=== PATIENT | female | born 1965 | race African-American/Black ===

== ENCOUNTER 2016-11-29 10:42 | Emergency (ER) | payer OTHER ==
[~2016-11-29] VITALS: Ht 165.1 cm; Wt 73.9 kg
[2016-11-29 10:49] VITALS: BP 119/73
[2016-11-29] MEDS ORDERED: PROMETHAZINE-C118 M1 ORAL (11:20)
[2016-11-29] MEDS ORDERED: IBUPROFEN600 MG ORAL (11:20)
[2016-11-29] MEDS ORDERED: CHLORPHENIRAMINE4 MG ORAL (11:20)
[2016-11-29 11:33] VITALS: BP 130/83
--- NOTE | 2016-11-29 20:05 | Emergency Room Report ---
History of Present Illness General Chief Complaint: Flu Like Symptoms Source: Patient Present Illness HPI 4 days of URI sy. R neck pain with palpation and movement - she thinks there are swollen nodes there. Slight headache. Sl sore throat. Non-productive cough. No flu vaccination. No NVD, rashes, chest pain, dysuria. 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 Menstrual Period: 2 weeks ago Reviewed Nursing Documentation: PMH: Agreed, PSxH: Agreed Nursing Documentation-PM Past Medical History: No Stated History Review of Systems All Other Systems: negative except mentioned in HPI Physical Exam Vital Signs Date Time Temp Pulse Resp B/P Pulse Ox O2 Delivery O2 Flow Rate FiO2 11/29/16 10:49 98.8 70 18 119/73 99 Room Air 11/29/16 10:55 99 Sp02 EP Interpretation: reviewed, normal General Appearance: well appearing, no apparent distress, GCS 15 Head: normocephalic, atraumatic Eyes: bilateral eye PERRL, bilateral eye normal inspection ENT: hearing grossly normal, normal voice, TMs + canals normal, pharyngeal erythema Neck: full range of motion, no meningismus, no bony tend, tender lateral - R sided Respiratory: chest non-tender, lungs clear, normal breath sounds, no respiratory distress, speaking full sentences Cardiovascular #1: regular rate, rhythm Gastrointestinal: normal inspection Musculoskeletal: digits/nails normal, gait/station normal, normal range of motion, no calf tenderness Neurologic: alert - grossly normal, normal gait Psychiatric: mood/affect normal Skin: no rash Lymphatic: other - anterior chain nodes Medical Decision Making Diagnostic Impression: Primary Impression: Upper respiratory infection Qualified Codes: J06.9 - Acute upper respiratory infection, unspecified ER Course Patient with URI sy and some neck pain. Ddx: viral syndrome, bronchitis, influenza. No signs of meningitis. Beyond time period where tamiflu indicated. Also sy not classic for influenza. Focus on symptomatic tx. Patient stable for outpatient observation and treatment. Last Vital Signs Date Time Temp Pulse Resp B/P Pulse Ox O2 Delivery O2 Flow Rate FiO2 11/29/16 11:33 98.8 11/29/16 11:33 74 16 130/83 98 11/29/16 10:55 Room Air 99 Status: improved Disposition: HOME, SELF-CARE Condition: Improved Scripts Ibuprofen* (MOTRIN*) 600 Mg Tablet 600 MG ORAL Q6H Y for For Pain, #16 TAB Prov: Weston Galvez M.D. 11/29/16 Chlorpheniramine Maleate (CHLORPHENIRAMINE MALEATE) 4 Mg Tablet 4 MG ORAL Q6HR, #12 TAB 0 Refills Prov: Weston Galvez M.D. 11/29/16 Codeine/Promethazine Hcl* (PROMETHAZINE-CODEINE SYRUP*) 118 Ml Syrup 5 ML ORAL Q6H Y for For Cough, #60 ML 0 Refills Prov: Weston Galvez M.D. 11/29/16 Referrals: NOT CHOSEN IPA/MD,REFERRING Patient Instructions: Upper Respiratory Infection, Adult Additional Instructions: You can take tylenol with these medicines also. See your doctor next week. Return if you are getting worse. You can take the [id number] medicines if you are not taking the chlorpheniramine (they might have other medicines which might help). Weston Galvez M.D. Nov 29, 2016 20:05
== END 2016-11-29 11:35 | disposition home or self-care (01) ==
LOC: EMR 11:08
DX: J06.9 Acute upper respiratory infection, unspecified (principal); M54.2 Cervicalgia; R51 Headache
CPT/HCPCS: 99282